=== PATIENT | female | born 1975 | race Caucasian/White ===

== ENCOUNTER 2017-11-01 17:45 | Emergency (ER) | payer OTHER, SELFPAY ==
[2017-11-01 17:46] VITALS: BP 156/97; PULSE 115; RESP 17; TEMP 37.7; O2SAT 96; BMI 29.0
[2017-11-01 18:09] VITALS: PULSE 104; RESP 16
[2017-11-01] MEDS: Ipratropium/Albuterol Sulfate 3 ML AMPUL.NEB INHALATION (18:09)
[2017-11-01] MEDS: Ibuprofen 400 MG Tablet 800 MG PO (18:13)
[2017-11-01] MEDS: predniSONE 20 MG Tablet 60 MG PO (18:13)
--- NOTE | 2017-11-01 19:09 | ED.VISSUMM ---
- ER Visit Summary Date of Service: 11/01/17 Chief Complaint: Sore throat and cough History of Present Illness: The patient is a [address] Anne. She reports she has sore throat and cough began 2 days ago. States that she has sharp pain in her throat that is 6 out of 10 at worst and 510 currently. Is worsened by eating solids. Is relieved by popsicles. She reports that her cough is productive clear sputum without blood. She has had subjective fever and chills. She also complains of nasal congestion and drainage. She was have diffuse myalgias and a headache that is 4-10 severity. She does have a history of similar headaches. Physical Examination: Vitals: Stable. Afebrile. General: Well-nourished and well-developed. Head: Normocephalic atraumatic. HEENT: Pharyngeal erythema. Absent tonsils. Neck: Supple, no lymphadenopathy. No JVD. Nontender. Cardiovascular: Regular rate and rhythm. No murmurs. Respiratory: No respiratory distress. Mild wheezing bilaterally with good air movement. Abdominal: Soft, nontender, nondistended, normal bowel sounds. No guarding, rebound, or peritoneal signs. Back: Nontender. Extremities: Nontender, no edema. Skin: Normal color, no rash. Neurologic: Alert and oriented ?3. Cranial nerves II through XII are intact. Normal strength and sensation. Psych: Normal affect. Test Results: Rapid strep was negative. Chest x-ray is read by the radiologist as a right lower lobe infiltrate. I do not appreciate this. Emergency Department Course and Treatment: Patient was treated with doxycycline, prednisone, Tylenol p.o. She is given albuterol and Atrovent aerosols. She is resting comfortably and would like to go home. Treatment Plan: Patient be discharged on 5 days burst of prednisone and doxycycline. Instructed follow-up her primary care physician in 3-5 days not improving. Return to the emergency department for any worsening symptoms. Disposition: To home in improved and stable condition. Impression: 1. URI. 2. Tobacco abuse. This note was generated with SchoolTube[employer] software. It may contain incorrect words, spelling, and punctuation that were not noted in review of the chart prior to signing ED Disposition - Plan for ED Patient: Disposition: Home or Assisted Living Chief Complaint: Cold Sx Instructions: ED Upper Resp Infec Abx Tx Prescriptions: Ondansetron [Zofran Odt] 4 mg PO Q8H PRN PRN #10 tablet PRN Reason: Nausea Prednisone [Deltasone] 40 mg PO DAILY #10 tablet Doxycycline Monohydrate 100 mg PO BID #14 capsule Referrals: Bo Anne MD [Primary Care Provider] - 1 Week if not improving
[2017-11-01] MEDS: Doxycycline 100 MG CAPSULE PO (19:22)
[2017-11-01 19:23] VITALS: TEMP 37.4
== END 2017-11-01 19:23 | disposition home or self-care (01) ==
LOC: ED 18:41
PROVIDERS: Emergency Provider Emergency Medicine; Family Provider Family Medicine; PCP Family Medicine
DX: J06.9 Acute upper respiratory infection, unspecified (principal); Z72.0 Tobacco use
CPT/HCPCS: 71046; 87880; 94640; 99283

== ENCOUNTER 2022-05-09 19:00 | Emergency (ER) | payer OTHER, SELFPAY ==
[2022-05-09 19:01] VITALS: BP 96/49; PULSE 89; RESP 16; TEMP 36.8; O2SAT 96; BMI 30.8
--- NOTE | 2022-05-09 19:59 | EKG12_ITS ---
Test Reason : DYSRHYTHMIA Blood Pressure : / mmHG Vent. Rate : 096 BPM Atrial Rate : 096 BPM P-R Int : 176 ms QRS Dur : 080 ms QT Int : 390 ms P-R-T Axes : 064 066 046 degrees QTc Int : 492 ms Normal sinus rhythm Prolonged QT Abnormal ECG Confirmed by MICA PARKS, ALFREDO ([id number]), electronic news gathering editor AYAAN CHINO ([id number]) on 05/12/2022 1:51:04 PM Referred By: RUEL Confirmed By:ALFREDO NINO MD
--- NOTE | 2022-05-09 20:00 | EDS_ITS ---
HPI History of Present Illness Chief Complaint: Dizziness Narrative Narrative: 46-year-old female presenting with dizziness. She describes it as vertiginous. She states its been coming and going over the last week but she has had this somewhat chronically. She states she has been generally weak for about 3 months. This was after they increased her dose of Effexor. She has had 3 episodes where she felt very dizzy. Today is the first time that she actually passed out from it. She fell and this was unwitnessed. She is unsure if she hit her head. She does not have a headache, nausea, slurred speech. Her called EMS and she had not to walk yet. She denies extremity pain. She states that she feels as if her right ear has been clogged for about 3 weeks. She previously had an appointment to see her primary care physician but canceled due to icy weather. Patient reports that she has had episodes of syncope since she was young. She states that used to be vasovagal syncope episodes due to her menstrual cycle. She has not had an episode of syncope until this month in a very long time. Patient also reports to me that her heart rate is usually between 100-115. She relates that she told her her heart rate is about 150 after walking up and down the stairs. She denies significant shortness of breath with this. [facility] Medical History Anxiety GERD (gastroesophageal reflux disease) High cholesterol Hypertension Home Medications Crestor 11/01/17 [History Last Taken Unknown] Effexor 11/01/17 [History Last Taken Unknown] Fenofibrate 11/01/17 [History Last Taken Unknown] doxycycline monohydrate 100 mg capsule 100 mg PO BID ##14 11/01/17 [Rx Last Taken Unknown] ondansetron 4 mg disintegrating tablet 4 mg PO Q8H PRN PRN Nausea #10 tabs 11/01/17 [Rx Last Taken Unknown] prednisone 20 mg tablet (Deltasone) 40 mg PO DAILY #10 tabs 11/01/17 [Rx Last Taken Unknown] meclizine 25 mg tablet 25 mg PO TID PRN dizziness #30 tabs 05/09/22 [Rx Last Taken Unknown] promethazine 25 mg tablet 25 mg PO TID PRN nausea and vomiting #14 tabs 05/09/22 [Rx Last Taken Unknown] Allergy/AdvReac Type Severity Reaction Status Date / Time azithromycin Allergy Hives Verified 05/09/22 19:05 [From Zithromax Z-Gustavo] sulfamethoxazole Allergy Hives Verified 05/09/22 19:05 [From Bactrim] trimethoprim [From Bactrim] Allergy Hives Verified 05/09/22 19:05 Social History Smoking Status: Current every day smoker tobacco type: cigarettes ROS ROS ED Constitutional Constitutional ED: Denies chills or fever(s) Eyes Eyes: Denies change in vision or diplopia ENT ENT ED: Denies rhinorrhea or sore throat Cardiovascular Cardiovascular: Denies chest pain or palpitations Respiratory/Chest Respiratory/Chest: Denies cough or dyspnea Gastrointestinal Gastrointestinal: Denies abdominal pain or constipation Genitourinary Genitourinary ED: Denies dysuria Musculoskeletal Musculoskeletal: Denies arthralgias or back pain Integumentary Denies abscess Neurologic Neurologic: Denies headache(s) or paresthesias Psychiatric Psychiatric: Denies anxiety or depression Endocrine Endocrinology: Denies cold intolerance EXAM Physical Exam Const Vital Signs: 05/09/22 19:01 05/09/22 19:44 05/09/22 20:20 Temperature 98.2 F Temperature Source Oral Pulse Rate 89 Pulse Rate [Lying] Pulse Rate [Sitting (for 1 minute prior to obtaining)] Pulse Rate [Standing (for 1 minute prior to obtaining)] Respiratory Rate 16 Respiratory Effort Normal Non-Labored Respiratory Pattern Normal Blood Pressure 96/49 L Blood Pressure [Lying] Blood Pressure [Sitting (for 1 minute prior to obtaining)] Blood Pressure [Standing (for 1 minute prior to obtaining)] Blood Pressure Mean 64 Blood Pressure Mean [Lying] Blood Pressure Mean [Sitting (for 1 minute prior to obtaining)] Blood Pressure Mean [Standing (for 1 minute prior to obtaining)] Pulse Ox 96 94 Oxygen Delivery Method Room Air Room Air 05/09/22 20:21 05/09/22 21:11 Temperature Temperature Source Pulse Rate 94 Pulse Rate [Lying] 87 Pulse Rate [Sitting (for 1 minute prior to obtaining)] 105 H Pulse Rate [Standing (for 1 minute prior to obtaining)] 112 H Respiratory Rate 18 Respiratory Effort Respiratory Pattern Blood Pressure 86/49 L Blood Pressure [Lying] 96/54 L Blood Pressure [Sitting (for 1 minute prior to obtaining)] 105/62 Blood Pressure [Standing (for 1 minute prior to obtaining)] 90/56 L Blood Pressure Mean 61 Blood Pressure Mean [Lying] 68 Blood Pressure Mean [Sitting (for 1 minute prior to obtaining)] 76 Blood Pressure Mean [Standing (for 1 minute prior to obtaining)] 67 Pulse Ox 95 Oxygen Delivery Method Room Air Positive well nourished General Appearance ED: NAD; Negative for pallor HEENT Reports TM's clear and moist mucous membranes HEENT Narrative: Lisbet-Hallpike trauma Tympanic Membrane ED: Yes TM's clear bilateral Eyes PERRL General Eye ED: Negative for pale conjunctiva or scleral icterus Neck no lymphadenopathy Resp normal respiratory effort and clear to auscultation bilaterally Auscultation: Negative for rales, rhonchi or wheezes Cardio regular rate and regular rhythm GI normal to inspection, nondistended, normoactive bowel sounds Neuro oriented x3 and CN's II-XII intact bilaterally Sensorium / Orientation: alert Psych mental status grossly normal Skin no rashes or lesions noted General Skin Exam: Negative for jaundice or pallor MDM MDM MDM Narrative Medical decision making narrative: Patient presenting with episode of syncope which she relates to vertiginous dizziness. Negative [place]-Hallpike on exam. Will obtain orthostatics. Differential at this point includes syncope, vertigo or I do want a rule out a cardiac source. EKG will be obtained as well as chest x-ray. High-sensitivity troponin. CBC for white blood cell count, hemoglobin, differential. BMP for renal function, electrolytes, glucose, anion gap. CBC shows a normal white blood cell count of 5.7. Hemoglobin 11.1. I have no comparison of this. Platelets normal 177. Renal function and electrolytes appear normal with exception of a potassium of 3.4. High-sensitivity troponin is 8. BNP 7.6. Orthostatic vital signs were obtained and her blood pressure lying is 96/54, sitting 105/62, standing 90/56. EKG on my interpretation shows a normal sinus rhythm with a ventricular to [address]pm[address] QTc slightly prolonged[address] interval 176 ms, QRS duration 80 ms, QT 390 ms, QTc 480 ms. Chest x-ray shows no acute process. Patient feeling better after given meclizine. She is no longer dizzy. She feels well. She wishes to be discharged home. She is medically clear by [place] syncope rule she is given seen for home to help with her dizziness. She also requests Zofran however given her QT I will prescribe her some Phenergan if she needs it for nausea. Patient discharged home in stable condition. Impression: 1. Syncope 2. Vertigo Lab Data Labs: Laboratory Results - last 24 hr 05/09/22 05/09/22 05/09/22 20:20 20:20 20:20 WBC 5.7 RBC 3.66 L Hgb 11.1 L Hct 34.4 L MCV 94.0 MCH 30.3 MCHC 32.3 RDW Std Deviation 59.6 H RDW Coeff of Ned 17.2 H Plt Count 177 MPV 9.2 Immature Gran % (Auto) 0.300 Neut % (Auto) 50.4 Lymph % (Auto) 35.3 [place] % (Auto) 10.0 Eos % (Auto) 2.8 Baso % (Auto) 1.2 H Absolute Neuts (auto) 2.9 Absolute Lymphs (auto) 2.02 Nucleated RBC % 0 Sodium 142 Potassium 3.4 L Chloride 109 H Carbon Dioxide 24.0 Anion Gap 9 BUN 6 L Creatinine 0.93 Estim Creat Clear Calc 66.57 Est GFR (MDRD) Af Amer 82 Est GFR (MDRD) Non-Af 68 BUN/Creatinine Ratio 6.4 L Glucose 125 H Calcium 8.5 Troponin I High Sens 8 B-Natriuretic Peptide 7.6 Radiography Diagnostic Testing: Clinical Impression(s) from Imaging Studies Chest X-Ray 05/09/22 20:07 IMPRESSION: No radiographic evidence of acute cardiopulmonary disease. Electronically Signed: Uday Winchester MD at 20:24 EST , Discharge Plan Triage Chief Complaint: Dizziness ED Provider: Junior Kovacs Dx/Rx/DC Orders Instructions: ED Fainting, Uncertain Cause, ED Vertigo, Unspecified Prescriptions: New meclizine 25 mg tablet 25 mg PO TID PRN (Reason: dizziness) Qty: 30 0RF promethazine 25 mg tablet 25 mg PO TID PRN (Reason: nausea and vomiting) Qty: 14 0RF No Action Crestor Effexor Fenofibrate prednisone [Deltasone] 20 MG tablet 40 mg PO DAILY Qty: 10 0RF Rx Instructions: With food doxycycline monohydrate 100 MG capsule 100 mg PO BID Qty: 14 0RF ondansetron 4 MG tablet 4 mg PO Q8H PRN PRN (Reason: Nausea) Qty: 10 0RF Primary Care Provider: Bo Anne Referrals: Bo Anne MD [Primary Care Provider] - Disposition Disposition: Home, Self Care
--- NOTE | 2022-05-09 20:07 | RAD_ITS ---
EXAM: XR CHEST, 1 VIEW CLINICAL INDICATION: chest pain TECHNIQUE: Frontal view of the chest. This report was created using [employer] report generation technology. COMPARISON: 11/01/2017 FINDINGS: LUNGS AND PLEURAL SPACES: Unremarkable. No consolidation or edema. No pneumothorax. No effusion. HEART: Unremarkable. Cardiac silhouette not enlarged. MEDIASTINUM: Central airways and mediastinal contour are unremarkable. BONES/JOINTS: Unremarkable. SOFT TISSUES: Unremarkable. RAD/Chest 1 View (Portable) IMPRESSION: No radiographic evidence of acute cardiopulmonary disease. Electronically Signed: Uday Winchester MD at 20:24 EST ,
[2022-05-09 20:20] VITALS: O2SAT 94
[2022-05-09 20:21] VITALS: BP 105/62; BP 90/56; BP 96/54; PULSE 105; PULSE 112; PULSE 87
[2022-05-09] MEDS: Meclizine HCl 25 MG Tablet PO (20:30)
[2022-05-09] MEDS: Ondansetron 4 MG/2 ML Vial IV (20:30)
[2022-05-09 20:32] LABS: Absolute Lymphocyte Count 2.02 X10^3/uL (0.83-4.51); Absolute Neutrophil Count 2.9 X10^3/uL (2.0-7.7); Basophil# 0.07 X10^3/uL; Basophil% 1.2 % (0-1); Eosinophil# 0.16 X10^3/uL; Eosinophils% 2.8 % (0-5); Hematocrit 34.4 % (37-47); Hemoglobin 11.1 g/dL (12.0-15.0); Lymphocyte # 2.02 X10^3/ul (0.83-4.51); Lymphocyte % 35.3 % (19-41); Mean Corp Hgb Conc 32.3 g/dL (32-36); Mean Corpuscular Hgb 30.3 pg (27.0-32.0); Mean Platelet Vol. 9.2 fl (6.2-12.0); Monocyte# 0.57 X10^3/uL; NRBC Flagged by Analyzer 0 % (0-5); Neutrophil # 2.88 X10^3/uL (2.7-7.7); Neutrophil % 50.4 % (47-70); Platelet Count 177 K/mm3 (150-450); RBC Distribution Width CV 17.2 % (11.6-14.6); RBC Distribution Width SD 59.6 fl (35.1-43.9); Red Blood Count 3.66 M/mm3 (4.2-5.4); White Blood Count 5.7 K/mm3 (4.4-11.0)
[2022-05-09 20:44] LABS: BNP,B-Type NATRIURETIC PEPTIDE 7.6 pg/mL (0-100)
[2022-05-09 20:48] LABS: Anion Gap 9 (5-15); BUN 6 mg/dL (7-18); BUN/Creat Ratio 6.4 RATIO (10-20); Calcium,Total 8.5 mg/dL (8.5-10.1); Chloride 109 mmol/L (98-107); Creatinine, Serum 0.93 mg/dL (0.55-1.02); EST Glomerular Filtration Rate 68 mL/min (>60); Est Glom Filt Rate - Afr Amer 82 mL/min (>60); Estimated Creatinine Clearance 66.57 ml/min; Glucose 125 mg/dL (74-106); Potassium 3.4 mmol/L (3.5-5.1); Sodium Level 142 mmol/L (136-145); Troponin-I HS 8 pg/mL (3.0-54.0)
[2022-05-09 21:11] VITALS: BP 86/49; PULSE 94; RESP 18; O2SAT 95
== END 2022-05-09 23:26 | disposition home or self-care (01) ==
PROVIDERS: Emergency Provider Student in an Organized Health Care Education/Training Program; PCP Family Medicine; Visit Provider Student in an Organized Health Care Education/Training Program
DX: R42 Dizziness and giddiness (principal); I10 Essential (primary) hypertension; F17.210 Nicotine dependence, cigarettes, uncomplicated; R55 Syncope and collapse; E78.00 Pure hypercholesterolemia, unspecified; K21.9 Gastro-esophageal reflux disease without esophagitis; F41.9 Anxiety disorder, unspecified
CPT/HCPCS: 71045; 80048; 83880; 84484; 85025; 93005; 96374; 99285; J2405

== ENCOUNTER 2023-07-02 11:30 | Day surgery (SDC) | payer OTHER, SELFPAY ==
--- NOTE | 2023-06-23 12:46 | PCM.HP.BLA ---
History and Physical Date of Admission: 07/02/23 HPI: The patient is a 47 year old female presenting for pre-operative visit. She is scheduled for laparoscopic bilateral salpingoophorectomy for right complex ovarian cyst thought to be dermoid cyst. Had a negative CEA and CA125 in the past. Also had hormone levels which returned in the menopausal range. Scheduled on 07/02/2023. Procedure discussed along with risks, benefits and complications. Other alternatives discussed for management. Consent form signed? Yes. ? ? PAST MEDICAL HISTORY PAST MEDICAL HISTORY Diagnosis Date ? Depression ? ? Essential hypertension ? ? GERD (gastroesophageal reflux disease) ? ? H/O Max's syndrome ? ? had left adrenalectomy ? Mixed hyperlipidemia ? ? ? PAST SURGICAL HISTORY PAST SURGICAL HISTORY Procedure Laterality Date ? ADRENALECTOMY Left 01/21/2023 ? robotic, benign mass ? COLONOSCOPY SCREENING ? 02/02/2023 ? HEMORRHOID;BAND LIGAT, SNGL/MUL ? 02/2023 ? hemorrhoid surgery ? SHOULDER SURGERY HX Right ? ? VAGINAL HYSTERECTOMY ? 2002 ? ? ? CURRENT MEDICATIONS Current Outpatient Medications Medication Sig Dispense Refill ? ALPRAZolam (XANAX) 0.5 mg tablet Take 0.5 mg by mouth. ? ? ? ondansetron (ZOFRAN) 8 mg tablet Take 8 mg by mouth every 8 hours as needed. ? ? ? rosuvastatin (CRESTOR) 40 mg tablet ? albuterol HFA (PROVENTIL HFA, VENTOLIN HFA) 90 mcg/actuation inhaler Inhale 2 Puffs as instructed every 6 hours as needed. ? ? ? metoprolol succinate ER (TOPROL XL) 25 mg 24 hr tablet take 1 tablet by mouth once daily DO NOT CRUSH OR CHEW ? ? ? Fenofibrate (LOFIBRA) 54 mg tablet ? pantoprazole DR (PROTONIX) 40 mg tablet ? hydrocortisone (HEMORRHOIDAL HC) 25 mg suppository unwrap and insert 1 suppository rectally twice a day if needed for HEMORRHOIDS ? ? ? venlafaxine ER (EFFEXOR XR) 75 mg 24 hr capsule ? ibuprofen (MOTRIN) 600 mg tablet Take 1 tablet by mouth every 6 hours as needed for pain. FOR PAIN. 40 tablet 1 ? oxyCODONE IR (ROXICODONE) 5 mg immediate release tablet Take 1 tablet by mouth every 8 hours as needed for pain for up to 5 days. 10 tablet 0 ? potassium chloride ER (KLOR-CON) 20 mEq tablet take 1 tablet by mouth twice a day - DO NOT CRUSH OR CHEW (Patient not taking: Reported on 06/22/2023) ? ? ? No current facility-administered medications for this visit. ? ? ALLERGIES: Amoxicillin-Pot Clavulanate, Azithromycin, Lisinopril, and Sulfamethoxazole ? PERSONAL HISTORY: SOCIAL HISTORY Social History ? Tobacco Use ? Smoking status: Every Day ? ? Types: Cigarettes ? Smokeless tobacco: Never Vaping Use ? Vaping Use: Never used Substance Use Topics ? Alcohol use: Yes ? ? Comment: seldom ? Drug use: Never ? FAMILY HISTORY: FAMILY HISTORY No family history on file. ? REVIEW OF SYMPTOMS: GENERAL: denies fevers or chills ENDOCRINOLOGY: has not been on steroids Cardiology : denies palpitations or chest pain Respiratory: denies SOB or cough Hematology: denies history of prolonged bleeding or easy bruising or VTE Allergy: Denies history of personal or family history of allergy to anesthesia ? PHYSICAL EXAMINATION: ? VITALS: Blood pressure 138/86, pulse 90, resp. rate 16, height 5' 5 (1.651 m), weight 158 lb 3.2 oz (71.8 kg). ? GENERAL: The patient is well nourished, well hydrated in no acute distress. , The patient is oriented to time, place, and person. NECK: Supple. No lynphadenopathy, normal thyroid, no thyromegaly. LUNGS: Clear to auscultation bilaterally. no wheezes, rhonchi or rales HEART: Regular rate and rhythm, Normal heart sounds, and No murmurs or gallops ? IMPRESSION: Right ovarian cyst, menopausal ? PLAN: The risks/benefits/alternatives and personal involved for the planned laparoscopic bilateral salpingo-oophorectomy were reviewed with the patient. Her questions were answered to her satisfaction and she desires to proceed. Consent was signed. I reviewed with her postop instructions and expectations. ? I have reviewed and updated past medical and surgical history, medications and allergies Assessment & Plan Assessment/Plan (1) Ovarian cyst, right:
[2023-07-02] VITALS (9 sets, daily range): BP systolic 96–143; BP diastolic 52–88; PULSE 57–76; RESP 16–18; TEMP 36.1–36.7; O2SAT 92–100; BMI 26.3
[2023-07-02 12:10] LABS: Internal QC Validated? YES +Cl - CLEAR BKGD; Record Kit Lot#,Urine Preg HCG0000718089
[2023-07-02 12:14] LABS: Pregnancy, Urine Negative Negative
[2023-07-02] MEDS: Scopolamine 1mg/72hr Patch 1 PATCH TD (12:37)
[2023-07-02] MEDS: Celecoxib 200 MG Capsule PO (12:38)
[2023-07-02] MEDS: Lactated Ringers 1,000 ML 15 ML IV (12:38)
[2023-07-02] MEDS: Acetaminophen 500 MG Tablet 1000 MG PO (12:38)
[2023-07-02 12:44] LABS: Prothrombin Time (Protime)PT. 13.3 SECONDS (11.7-14.9)
[2023-07-02 12:45] LABS: Partial Thromboplast Time 27.1 Seconds (24.1-36.2)
--- NOTE | 2023-07-02 13:05 | OV_PTH ---
PATIENT: JOSEPH CALDERON LOC: [facility] U#:[id number] AGE/SX: 47/F ROOM: RE07/02/[address]: Dr. Ursula Yan MD : 1975 BED: DIS: 07/02/2023 SPEC #: [id number] RECD: 07/02/23 16:19 STATUS: REHAN FELDER #: [id number] ERIKA: 07/02/23 13:[address]: Ursula Yan DEPT: SURGICAL PATHOLOGY RECD BY: Miranda Tan ENTERED: 07/03/23 10:06 SP TYPE: OVARY OTHR DR: Dr. Bo Anne MD Tissues: OVARIAN CYST Procedures: Surgery Specimen Level IV HEADER OPERATION: Laparoscopic, salpingectomy - oophorectomy PRE-OP DIAGNOSIS: Ovarian cyst, right TISSUE SUBMITTED: Bilateral fallopian tubes and ovaries MICROSCOPIC DIAGNOSIS Bilateral fallopian tubes and ovaries, salpingo oophorectomy: One ovary with corpora albicantia. Second ovary with serous cyst adenofibroma Cystic structure - dermoid cyst (mature cystic teratoma). AM: 07/07/2023 MICROSCOPIC DESCRIPTION Slides are reviewed. GROSS DESCRIPTION Received in fixative is one container labeled with the patient's name and designated bilateral fallopian tubes and ovaries. The specimen consists of bilateral fallopian tubes, ovaries and detached cyst identified as right ovarian cyst. One of the fallopian tube measures 2.5cm in length and 0.5cm in diameter. Fimbrial end is identified. The fallopian tubes are not identified as right or left. Sections reveal unremarkable cut surfaces. Adjacent ovary measures 2.0 x 1.5 x 1.0cm. Sections reveal unremarkable cut surfaces. Second fallopian tube measures 2.5 x 0.5 x 0.5cm. It shows tubal ovarian adhesions. Predominantly consists of fimbrial end. Adjacent ovary measures 2.0 x 1.5 x 1.5cm. Sections reveal unremarkable cut surfaces. Detached cyst measures 7.0 x 3.5 x 4.0cm and weighs 34gm. Outer surface is smooth. The cyst appears to be ruptured focally. Outer surface is smooth and inked black. The cyst is filled with sebum like material and also contains a few hairs. No solid area or area of bone formation is noted. Design Drafter sections are submitted in six cassettes as follows: 1- one fallopian tube and ovary, 2&3- second fallopian and ovary (more section of second ovary), 4-6- detached cyst SJ:mr 07/03/23 TC:1 CPT: 06559,41780
[2023-07-02] MEDS: Bupivacaine 0.5% PF 10 ML VIAL (15:32)
--- NOTE | 2023-07-02 15:40 | PCM.OPRPT ---
Problems Associated Problem List Diagnoses (1) Ovarian cyst, right: Report of Operation Date of Procedure: 07/02/23 Pre-Operative Diagnosis: right ovarian cyst Post-Operative Diagnosis: same Surgery/Procedure Performed:: Laparoscopic bilateral salpingoophorectomy Surgeon: Ursula Yan supervisor rubber covering: Julienne Jacobs supervisor rubber covering: Megan Rowan Type of Anesthesia: General Anesthesiologist: Atul Cifuentes Special Medications: none Specimen's removed: bilateral tubes and ovaries Drains: none Estimated Blood Loss (mL): 10 Fluids Replaced: 800 cc Description of Procedure: The patient was taken to the operating room where she was prepped and draped in the dorsolithotomy position. The sponge stick was placed in the vagina. Attention was turned to the abdomen. All port sites were infiltrated with 0.5% Marcaine before skin incisions were made. A [5] mm [intraumbilical] incision was made. The anterior abdominal wall was tented up with 2 towel clamps while a [5] mm blade less trocar and sleeve were [directly inserted]. Intraperitoneal placement was confirmed with the laparoscope. The pneumoperitoneum was created and the underlying abdominal contents were intact. The patient was placed in Trendelenburg. 5mm right and left lower quadrant ports were placed under direct visualization lateral to the inferior epigastric vessels. The bowel was swept away and the above findings were noted. The ureters were identified on both sides. The left infundibulopelvic ligament was clamped, sealed and transected with the LigaSure device. There were some filmy adhesions to the abdominal wall and the posterior cul-de-sac that were taken down with blunt and sharp dissection. The right ovary was small but had a large cyst coming off of it that was somewhat adhered to the epiploica of the colon in the posterior cul-de-sac. These adhesions were able to be taken down with blunt and sharp dissection.. The right infundibulopelvic ligament was then clamped, sealed and transected with the LigaSure device. During lysis of adhesions it should be noted that the right ovarian cyst did evils from the right ovary as it was a very tiny pedicle. However it did not rupture.. The pedicles were again examined and found to be hemostatic. The umbilical incision was stretched and an Endo Catch bag was placed through this. The cyst and both tubes and ovaries were placed in the bag. It was brought up to the umbilical incision and the cyst was then ruptured in the bag and the suction nutrition teacher was used to remove some of the fluid. It was sebaceous type fluid material. The bag was then able to be removed. The pedicles were again reexamined. Some Amanda was placed over the pedicles. The umbilical port fascia was closed with 0 Vicryl [id number] sutures.. The lateral ports were removed under direct visualization and no active bleeding was noted. The pneumoperitoneum was released. The skin incisions were closed with Monocryl suture in a subcuticular fashion and skin glue by Dr. Jacobs. The vaginal instruments were removed and the vaginal sweep was completed by me. The procedure was performed by me with assistance other than as dictated above. All sponge and needle counts were correct and the patient was taken to the recovery room in stable condition. There were no residents available for the procedure. Dr. Jacobs provided camera guidance and tissue manipulation and closure during the procedure. Grafts/Implants Used: none Procedure Start Time: 15:00 Procedure Stop Time: 13:47 Complications none Admit VTE Documentation VTE Present on Admission: No VTE Mechan Device Prophylaxis: SCD's VTE Pharm Prophylaxis ordered?: No Reason prophylaxis not ordered:: Procedure Not Indicated
--- NOTE | 2023-07-02 15:48 | PCM.DC ---
Discharge Instructions Diet Discharge Diet: No restrictions (Increase fluid intake for the next 48 hours.) Activity Return to work on:: 07/13/23 May resume sexual activity in: - (as tolerated) Additional Activity Instructions:: Ambulate often. Dressing / Incision Call your doctor if your incision/area has: Continuous Slow Oozing, Sudden Increased Bleeding, Increased Pain/ Swelling, Increased Redness and Foul Smelling Discharge Call your doctor if you observe: Fever of 101 or Higher Cleanse incision/area with: Soap & Water and - (Your incisions have skin glue, it can get wet. LEave it on for at least 10 days. ) Follow Up Care Please Follow Up With: Ursula Yan MD When: Call [phone] to schedule a postop or as needed or send a [employer] message Test Results: Test results from this visit will be discussed in further detail at your follow-up appointment, if applicable. P Discharge Plan Admission Primary Reason for Your Visit: Laparoscopic bilateral salpingoophorectomy Attending Provider: Ursula Yan Primary Care Provider: Bo Anne Discharge Orders/Prescriptions Prescriptions: New ibuprofen [ibuprofen] 600 mg tablet 600 mg PO Q6H PRN (Reason: Pain) Qty: 60 1RF oxycodone 5 mg tablet 5 mg PO Q6H PRN PRN (Reason: severe pain) 7 Days Qty: 12 0RF Continued fenofibrate 54 mg tablet 54 mg PO DAILY rosuvastatin 20 mg tablet 20 mg PO DAILY metoprolol tartrate 25 mg tablet 25 mg PO DAILY pantoprazole 40 mg tablet,delayed release (DR/EC) 40 mg PO DAILY venlafaxine 75 mg capsule,extended release 24hr 75 mg PO DAILY coenzyme Q10 [Co Q-10] 100 mg capsule 400 mg PO DAILY Referrals / Follow Up: Bo Anne MD [Primary Care Provider] - Disposition Disposition (needs filled in before D/C Order can be placed): Home, Self Care
[2023-07-02] MEDS: Lactated Ringers 1,000 ML 75 ML IV (16:35)
[2023-07-02] MEDS: oxyCODONE 5 MG Tablet PO (16:59)
== END 2023-07-02 17:33 | disposition home or self-care (01) ==
LOC: SDC 11:33 → AC 11:33
PROVIDERS: Anesthesiology; PCP Family Medicine; Referring Provider Family Medicine; Visit Provider Obstetrics & Gynecology
PROC: (CPT 58661; principal; 2023-07-02 12:50)
DX: D27.9 Benign neoplasm of unspecified ovary (principal); E78.2 Mixed hyperlipidemia; Z78.0 Asymptomatic menopausal state; I10 Essential (primary) hypertension; K21.9 Gastro-esophageal reflux disease without esophagitis; Z79.899 Other long term (current) drug therapy; F17.210 Nicotine dependence, cigarettes, uncomplicated; Z90.710 Acquired absence of both cervix and uterus
CPT/HCPCS: 58661; 00840; 81025; 85610; 85730; 88305; J7120; J2405